=== PATIENT | male | born 1990 | race African-American/Black ===

== ENCOUNTER 2018-05-31 19:13 | Emergency (ER) | payer BC, MEDICAID ==
[~2018-05-31] VITALS: Ht 177.8 cm; Wt 84.0 kg
[2018-05-31] MEDS ORDERED: TETANUS, DIPHTHERIA, PERTUSSIS VAC/PF 0.5ML (>7YR OLD) IM ONE (23:30)
[2018-05-31] MEDS ORDERED: HYDROCODONE/ACETAMINOPHEN 5/325MG TABLET PO ONE (23:30)
[2018-05-31] MEDS ORDERED: BACITRACIN ZINC OINT UDPKT TOP ONE (23:30)
[2018-06-01 00:30] VITALS: BP 124/79
== END 2018-06-01 00:31 | disposition home or self-care (01) ==
LOC: ER 19:13
DX: S50.812A Abrasion of left forearm, initial encounter (principal); S20.319A Abrasion of unspecified front wall of thorax, initial encounter; S60.412A Abrasion of right middle finger, initial encounter; S60.414A Abrasion of right ring finger, initial encounter; S60.416A Abrasion of right little finger, initial encounter; V49.88XA Car occupant (driver) (passenger) injured in other specified transport accidents, initial encounter; Y93.89 Activity, other specified; Y92.89 Other specified places as the place of occurrence of the external cause; Y99.8 Other external cause status
CPT/HCPCS: 71045; 90471; 90715; 93005; 99283